=== PATIENT | female | born 1960 | race Caucasian/White ===

== ENCOUNTER → 2017-12-24 | Outpatient (CLI) | payer OTHER | LOC: FIMAGING 10:47 | PROVIDERS: ATTEND Neurological Surgery | DX: Z98.1 Arthrodesis status (principal); M47.892 Other spondylosis, cervical region; M47.893 Other spondylosis, cervicothoracic region; M46.93 Unspecified inflammatory spondylopathy, cervicothoracic region; M46.92 Unspecified inflammatory spondylopathy, cervical region ==

== ENCOUNTER → 2018-02-20 | Outpatient (CLI) | payer OTHER | LOC: FIMAGING 09:51 | PROVIDERS: ATTEND Neurological Surgery | DX: Z98.1 Arthrodesis status (principal) ==

== ENCOUNTER → 2018-07-30 | Outpatient (CLI) | payer OTHER | LOC: FIMAGING 10:50 | PROVIDERS: ATTEND Physician Assistant | DX: Z98.1 Arthrodesis status (principal); M50.31 Other cervical disc degeneration, high cervical region ==

== ENCOUNTER 2018-10-28 11:27 | Emergency (ER) | payer OTHER ==
[2018-10-28 11:33] VITALS: BP 141/105
--- NOTE | 2018-10-28 12:27 | EDPHY ---
H & P Time Seen by Provider: 10/28/18 11:40 HPI/ROS: Chief complaint. Rule out DVT HPI. Patient is a 58-year-old female who tore her hamstring in July 2018. She was awaiting surgery. She had surgery on October 10 and ended up not having repair because scar tissue seem to be managing the injury. Today she was in physical therapy and the physical therapist felt her calf was maybe slightly swollen. The patient has no pain. She has no history of DVT. She has no chest pain or shortness of breath ROS 10 systems were reviewed and negative with the exception of the elements mentioned in the history of present illness Past Medical/Surgical History: Hamstring surgery and [place] 2012 Social History: , nonsmoker, no alcohol Smoking Status: Never smoked Physical Exam: General Appearance: Alert pleasant well-developed female mild distress vital signs are stable Eyes: Pupils equal and round no pallor or injection. ENT, Mouth: Mucous membranes are moist. Respiratory: There are no retractions, lungs are clear to auscultation. Cardiovascular: Regular rate and rhythm. Gastrointestinal: Abdomen is soft and nontender, no masses, bowel sounds normal. Neurological: Awake and alert, sensory and motor exams grossly normal. Skin: Warm and dry, no rashes. Musculoskeletal: Neck is supple nontender. Extremities symmetrical, full range of motion. No appreciable swelling. No pain to the calf. No pain to the medial thigh Psychiatric: Patient is oriented X 3, there is no agitation. Constitutional: Initial Vital Signs Temperature (C) 36.6 C 10/28/18 11:30 Heart Rate 102 H 10/28/18 11:30 Respiratory Rate 18 10/28/18 11:30 Blood Pressure 141/105 H 10/28/18 11:30 O2 Sat (%) 97 10/28/18 11:30 O2 Delivery Mode Room Air Allergies/Adverse Reactions: No Known Allergies Allergy (Unverified 10/28/18 11:33) Home Medications: Medication Instructions Recorded Wellbutrin 01/05/11 Medical Decision Making - Diagnostics Imaging Results: Imaging Impressions Extremity Venous Study 10/28/18 11:40 Impression: No deep venous thrombosis right leg. Findings and recommendations discussed with Emergency Department physician, KIP DUKE at 12:16 hour, 10/28/2018. Final report concurs with initial preliminary interpretation. Ultrasound reviewed by me and discussed with Radiology shows no evidence for DVT ED Course/Re-evaluation: Re-evaluation patient is stable at 12 8:00 p.m.. She and I discussed imaging study results, treatment plan including criteria for return importance of follow -up and further evaluation. She expresses understanding and agreement Differential Diagnosis: I considered DVT, calf strain. Departure - Departure Disposition: Home, Routine, Self-Care Clinical Impression: Hamstring injury Qualifiers: Encounter type: sequela Laterality: right Qualified Code(s): S76.301S - Unspecified injury of muscle, fascia and tendon of the posterior muscle group at thigh level, right thigh, sequela Condition: Good Instructions: Hamstring Injury (ED) Additional Instructions: Continue taking daily aspirin and physical therapy Return for calf pain or swelling. Referrals: NONE *PRIMARY CARE P,. [Primary Care Provider] - As per Instructions
== END 2018-10-28 12:15 | disposition home or self-care (01) ==
DX: S76.301D Unspecified injury of muscle, fascia and tendon of the posterior muscle group at thigh level, right thigh, subsequent encounter (principal)